=== PATIENT | female | born 1960 | race African-American/Black ===

== ENCOUNTER 2016-07-02 18:51 | Emergency (ER) | payer SELFPAY ==
[~2016-07-02] VITALS: Ht 165.1 cm; Wt 66.2 kg
[2016-07-02 19:50] LABS: HEMATOCRIT 37.2 % (36.0-46.0); MCH 27.1 PG (29.0-34.0); MCHC 33.6 G/DL (30.0-36.0); MCV 80.7 FL (83-99); MEAN PLAT.VOLUME 10.5 uM^3 (9.5-12.4); PLATELET COUNT 300 K/uL (156-360); RBC DIS.WIDTH-CV 15.9 % (11.8-14.6); RBC DIS.WIDTH-SD 45.8 % (39-53); RED BLOOD COUNT 4.61 M/uL (3.80-5.20); WHITE BLOOD COUNT 13.1 K/uL (4.1-10.2)
[2016-07-02 19:59] LABS: CHLORIDE 108 mEq/L (99-109); SODIUM 139 mEq/L (136-147)
[2016-07-02 20:00] LABS: GLUCOSE 103 mg/dL (70-99)
[2016-07-02 20:02] LABS: ANION GAP 10 MEQ/L (2-14)
[2016-07-02 20:04] LABS: GFR ESTIMATE (CALCULATED) > 59 mL/min/
[2016-07-02 20:05] LABS: UREA NITROGEN (BUN) 13 mg/dL (9-23)
[2016-07-02 20:07] LABS: URIC ACID 5.7 mg/dL (3.1-9.2)
[2016-07-02 20:30] LABS: C-REACTIVE PROTEIN 2.6 MG/L (0-10)
[2016-07-02] MEDS ORDERED: MOBIC15 MG PO (23:47)
[2016-07-02] MEDS ORDERED: KENALOG,ARISTOC80 GM TP (23:47)
[2016-07-02 23:56] VITALS: BP 177/101
== END 2016-07-02 23:58 | disposition home or self-care (01) ==
LOC: EME 18:51
PROVIDERS: Physician Assistant
DX: M17.0 Bilateral primary osteoarthritis of knee (principal); R21 Rash and other nonspecific skin eruption
CPT/HCPCS: 73564; 80048; 84550; 85027; 86140; 93925; 99281; 99284